=== PATIENT | male | born 1960 | race Caucasian/White ===

== ENCOUNTER 2022-02-05 08:22 | Outpatient (CLI) | payer BC, SELFPAY ==
--- NOTE | 2022-02-05 08:30 | ECG_ITS ---
Measurements Intervals [place] Rate: 76 P: 51 IN: 140 QRS: 53 QRSD: 122 T: 37 QT: 383 QTc: 433 Interpretive Statements SINUS RHYTHM NONSPECIFIC ST ABNORMALITY ABNORMAL ECG NO PREVIOUS ECG AVAILABLE FOR COMPARISON Electronically Signed On 02-05-2022 9:32:07 CDT by Joseph Bello M.D.
== END 2022-02-05 08:23 | disposition home or self-care (01) ==
LOC: ANHSURGERY 08:26
PROVIDERS: PCP Nurse Practitioner Adult Health; Visit Provider Otolaryngology
DX: I10 Essential (primary) hypertension (principal); Z01.818 Encounter for other preprocedural examination; R94.31 Abnormal electrocardiogram [ECG] [EKG]
CPT/HCPCS: 93005

== ENCOUNTER 2022-02-09 00:43 | Day surgery (SDC) | payer BC, SELFPAY ==
[2022-02-01 14:13] VITALS: BMI 33.5
--- NOTE | 2022-02-01 14:21 | PC.NURSE ---
Report to the Outpatient Waiting Room, entrance under the green pavilion located off [facility], at time _0715_ on date _[id number]_. OR Time: _0915_. Time changes happen often and if your time is changed the preop area will call you the afternoon before. - You and your visitor will be asked to self-screen and do not enter if you have any COVID symptoms. - We encourage only one visitor and NO visitors under age 16 are allowed at this time. Your visitor will receive communication by the phone number that is given day of service. - The patient visitor is requested to social distance or may leave the building when not with patient due to restrictions. - A mask is required within the hospital. Patients may have clear liquids (water, carbonated beverages, clear teas, apple juice) until 3 hours prior to surgery with a maximum of 20 ounces. - No food from midnight until time of surgery Take the following medications with a SIP of water the morning of surgery: ____Welbutrin Medications to discontinue per physician None Date to take last dose Please no make-up, nail nepalese, hairspray, perfume, deodorant, or body powder the day of surgery. No jewelry (including any body piercings) or valuables the day of surgery, leave them at home. Please take a shower or bath the night before, or the morning of, surgery with an antibacterial soap. Wear comfortable, loose fitting clothing. - Jewelry must be removed prior to entering the operating room. Rings and piercings that are not removed may be cut off. - The hospital will not accept responsibility for valuables. - Please leave all valuables, including medications, at home the day of surgery. If you are going home after surgery, a licensed helper/driver must drive you home. - NO public transportation without another adult. - We recommend that an adult stay with you for 24 hours following discharge. - We also recommend that you do not drive, make important decision, drink alcoholic beverages, or take any drugs that were not prescribed by your health care provider for at least 24 hours after your discharge time. Follow any additional instructions given to you from your surgeon. If you or anyone in your household have experienced Covid symptoms in the past week, please notify your surgeon or the nurse liaison at the phone number below for possible testing. Telephone instructions given to _Patient__and asked if any additional questions and then verbalized understanding. Patient advised to call surgeon office or pre surgery nurse liaison [phone] if any additional questions.
--- NOTE | 2022-02-08 17:10 | PM.IMHP ---
H&P: HPI History of Present Illness Date/Time: 02/08/22 17:10 Chief Complaint: nasal obstruction nasal congestion septal deviation turbinate hypertrophy scalp cyst Narrative: planned surgical procedure Review of Systems Review of Systems: All systems reviewed & are unremarkable except as noted in HPI and below PMFSH Past Medical History Medical History (Updated 12/18/21 @ 08:36 by Onesimo Pruett MD) Anxiety Blood clotting disorder Cancer Hypertension Kidney disease Kidney stone Surgical History Surgical History (Updated 12/18/21 @ 08:08 by Mami Su [facility]) H/O hernia repair 2007 H/O kidney removal Right 2004 History of partial knee replacement Left 2019 Right 2016 Family History Family History (Updated 12/18/21 @ 08:08 by Mami Su CMA) Sibling Diabetes mellitus Leukemia Father Diabetes mellitus Hypertension Heart disease Cerebrovascular accident Mother Hypertension Heart disease Cerebrovascular accident Social History Social History (Updated 12/18/21 @ 08:08 by Mami Su CMA) Smoking status: Never smoker Alcohol intake: never Substance use: current Substance use type: marijuana Other substance usage details: 3 or 4 times a week Spiritual care concerns: No Meds Home Medications and Allergies Home Medications Medication Instructions Recorded Confirmed Type alprazolam 0.25 mg tablet (Xanax) 0.25 mg PO QHS PRN Anxiety 12/18/21 02/01/22 History bupropion HCl 150 mg tablet,12 hr 150 mg PO DAILY 12/18/21 02/01/22 History sustained-release (Wellbutrin SR) lactobacillus combination no.9 4 4,000 mmu cells PO DAILY 12/18/21 02/01/22 History billion cell capsule (Adult 50 Plus Probiotic) lisinopril 10 mg tablet 10 mg PO DAILY 12/18/21 02/01/22 History omeprazole 20 mg capsule,delayed 20 mg PO DAILY 12/18/21 02/01/22 History release psyllium husk 0.4 gram capsule 0.4 g PO DAILY 12/18/21 02/01/22 History (Daily Fiber) tramadol 50 mg tablet 50 mg PO Q6H PRN Pain 12/18/21 02/01/22 History Allergies Allergy/AdvReac Type Severity Reaction Status Date / Time No Known Allergies Allergy Mild Unverified 02/01/22 14:11 Exam Narrative: scalp cyst septal deviation turbinate hypertrophy Assessment and Plan Assessment and plan (1) Scalp cyst: Code(s): L72.9 - Follicular cyst of the skin and subcutaneous tissue, unspecified Status: Acute Assessment and Plan: plan operating room excision of scalp cyst, we will do this 1st, endoscopic assisted septoplasty inferior turbinate submucosal reduction with outfracture. Risks were discussed including bleeding infection postoperative infection failure also resolve symptoms CSF leak brain damage brain change in vision blindness septal perforation failure to resolve symptoms need for time off work postoperative bleeding patient voiced understanding and agreed. (2) Hypertrophy of both inferior nasal turbinates: Code(s): J34.3 - Hypertrophy of nasal turbinates Status: Acute (3) Nasal septal deviation: Code(s): J34.2 - Deviated nasal septum Status: Acute (4) Nasal congestion: Code(s): R09.81 - Nasal congestion Status: Acute (5) Nasal obstruction: Code(s): J34.89 - Other specified disorders of nose and nasal sinuses Status: Acute
[2022-02-09] VITALS (8 sets, daily range): BP systolic 102–190; BP diastolic 67–112; PULSE 68–88; RESP 12–20; TEMP 36.3–36.6; O2SAT 98–100; BMI 33.7
--- NOTE | 2022-02-09 07:12 | WPDHPUPDATE1 ---
History and Physical Update Update Date/Time: 02/09/22 07:12 History and Physical has been reviewed, including an updated exam of the patient. There are NO changes in the patient's condition. Risks, benefits, and alternatives have been discussed and questions answered. Patient agrees to proceed with procedure.
[2022-02-09] MEDS: ACETAMINOPHEN 500 MG TABLET 1000 MG PO (07:34)
[2022-02-09] MEDS: LACTATED RINGERS 1,000 ML 30 ML IV CONT (07:50)
--- NOTE | 2022-02-09 07:59 | WPDANESEPPF ---
Anes - Initial Pre Proc Eval Procedure: Operation Date: 02/09/22 08:45 Proposed Procedures p Bilateral Inferior Turbinectomy with Outfracture, - Onesimo Pruett MD s Endoscopic Septoplasty, - Onesimo Pruett MD s Excision of Scalp Cyst - Onesimo Pruett MD Date/Time: 02/09/22 07:59 Surgeon: Onesimo Pruett MD Pre Op Diagnosis: septal deviation, scalp cyst Patient Data Age: 61 Gender: M Height: 1.83 m Weight: 112.95 kg Last Vital Signs Temp 36.3 C L 02/09/22 07:10 Pulse 78 02/09/22 07:10 Resp 16 02/09/22 07:10 BP 102/67 02/09/22 07:10 Pulse Ox 98 02/09/22 07:10 O2 Del Method Room Air 02/09/22 07:10 Allergies Allergy/AdvReac Type Severity Reaction Status Date / Time No Known Allergies Allergy Mild Verified 02/09/22 07:14 Home Medications Medication Instructions Recorded Confirmed Type alprazolam 0.25 mg tablet (Xanax) 0.25 mg PO QHS PRN Anxiety 12/18/21 02/01/22 History bupropion HCl 150 mg tablet,12 hr 150 mg PO DAILY 12/18/21 02/09/22 History sustained-release (Wellbutrin SR) lactobacillus combination no.9 4 4,000 mmu cells PO DAILY 12/18/21 02/01/22 History billion cell capsule (Adult 50 Plus Probiotic) lisinopril 10 mg tablet 10 mg PO DAILY 12/18/21 02/01/22 History omeprazole 20 mg capsule,delayed 20 mg PO DAILY 12/18/21 02/01/22 History release psyllium husk 0.4 gram capsule 0.4 g PO DAILY 12/18/21 02/01/22 History (Daily Fiber) tramadol 50 mg tablet 50 mg PO Q6H PRN Pain 12/18/21 02/01/22 History Patient hx anesthesia problems: none Family hx anesthesia problems: none Results Review: All pre-operative results and documents have been reviewed as part of the pre-operative evaluation. [facility] Past Medical History Medical History (Updated 02/09/22 @ 08:00 by Delmer Brenner MD) Anxiety Blood clotting disorder Cancer Hypertension Kidney disease Kidney stone Obesity LIZ (obstructive sleep apnea) Surgical History Surgical History H/O hernia repair 2007 H/O kidney removal Right 2004 History of partial knee replacement Left 2019 Right 2016 Family History Family History Sibling Diabetes mellitus Leukemia Father Diabetes mellitus Hypertension Heart disease Cerebrovascular accident Mother Hypertension Heart disease Cerebrovascular accident Social History Social History Smoking status: Never smoker Alcohol intake: never Substance use: current Substance use type: marijuana Other substance usage details: 3 or 4 times a week Living arrangements: with family Spiritual care concerns: No Anes - Eval Final PreProcedure Day of Procedure 02/09/22 07:59 Patient weight: obese Heart: regular rate and rhythm Lungs: clear to auscultation Airway: Mallampati scale class II Last oral intake: >/= 8 hours ASA classification: III Emergent: no Anesthetic plan: proceed Anesthesia type and monitoring: general ETT and standard monitoring Results Review: All pre-operative results and documents have been reviewed as part of the pre-operative evaluation. Informed Consent: The patient's anesthetic plan and its attendant risks and benefits were discussed with the patient/family/POA. Questions were solicited and answers provided to the satisfaction of the patient/family/POA.
[2022-02-09] MEDS: ceFAZolin 2 GM/D5W 50 ML 2 GM/50 ML BAG IVPB (08:28)
[2022-02-09] MEDS: OXYMETAZOLINE HCL 0.05% NAS 15 ML BTL (*BKC) 1 SPRAY NASAL (08:50)
--- NOTE | 2022-02-09 10:24 | W.PM.PROC2 ---
Procedure Note - Detailed Date of Procedure 02/09/22 Pre-op Diagnosis septal deviation, scalp cyst, turbinate hypertrophy, nasal obstruction, nasal congestion Post-op Diagnosis Same Procedure Performed excision of 5 cm scalp cyst as well as septoplasty endoscopic assisted turbinate reduction with outfracture Surgeon Onesimo Pruett MD Anesthesia General Indications see above Findings septum deviated to the left turbinates hypertrophied well reduced no concomitant perforations opposing each other scalp cyst about 5 cm dermoid appearing closed lysed nicely no drain minimal blood loss about 15 cc Description of Procedure patient identified consent verified. Patient brought operating room. Time-out performed. General anesthesia induced endotracheal tube secured airway. Patient prepped and draped for for mentioned procedure 2nd time-out performed. Ellipse drawn over the about 5 cm cyst on the scalp lips in size cyst dissected out using blunt dissection bipolar electrocautery at a setting 5 UTI utilized to cauterize any small bleeding vessels. Wound copiously irrigated with sterile normal saline. Deep layer closed with 3 interrupted 300 interrupted Vicryl sutures about 5, the skin was then glued. A pressure dressing was placed on this. Patient is then prepped and draped for the nasal portion of procedure. 0 degree endoscope utilized 6 Afrin-soaked pledgets placed allowed to sit for 5 minutes then removed. Total 15 cc 1% lidocaine 1 100,000 parts epinephrine injected in the nasal septum turbinates [place] incision made with 15 blade 7 Turkish suction utilized to dissect left nasal septal flap osteotome utilized to cross over septum right nasal septal flap elevated with 7 Turkish suction deviated septum removed with osteotome [place] forceps and Matthew forceps [place] incision closed with 4 interrupted 5 0 fast gut sutures. Turbinates reduced in the submucosal plane using the microdebrider with inferior turbinate blade. There then outfractured with a Bearden elevator. Darnell splints were then placed and sutured anteriorly using a mattress 3 0 nylon suture. Total blood loss 15 cc. I performed all dictated portions care the patient given Anesthesiology there no complications patient taken to PACU. Estimated Blood Loss -15.0 Drains No Packing No Pathology Yes Complications No immediate complications Condition Stable Disposition PACU
== END 2022-02-09 12:15 | disposition home or self-care (01) ==
PROVIDERS: PCP Nurse Practitioner Adult Health; Visit Provider Otolaryngology
PROC: (CPT 11426; principal; 2022-02-09 08:45)
PROC: (CPT 30520; 2022-02-09 08:45)
PROC: (CPT 11426; 2022-02-09 08:45)
DX: J34.2 Deviated nasal septum (principal); J34.3 Hypertrophy of nasal turbinates; J34.89 Other specified disorders of nose and nasal sinuses; R09.81 Nasal congestion; L72.11 Pilar cyst; I10 Essential (primary) hypertension; G47.33 Obstructive sleep apnea (adult) (pediatric); F41.9 Anxiety disorder, unspecified; E66.9 Obesity, unspecified; Z68.33 Body mass index [BMI] 33.0-33.9, adult; F12.90 Cannabis use, unspecified, uncomplicated
CPT/HCPCS: 11426; 12032; 30140; 30520; 88305; A9270; J0330; J0690; J1100; J1170; J2250; J2405; J2704; J3010; J7120

== ENCOUNTER 2022-08-10 16:38 | Outpatient (CLI) | payer BC, SELFPAY ==
--- NOTE | ~2022-08-10 | XR_ITS ---
Supine and upright views of the abdomen Clinical history: Flank pain Findings: Bowel gas pattern is nonspecific. No evidence for obstruction or free air. Evidence of prob able prior herniorrhaphy. No abnormal mass lesion or calcification is seen. Osseous structures are in tact. Impression: No acute abnormality is seen. Probable prior herniorrhaphy. Reviewed, dictated and finalized at location . Impression: No acute abnormality is seen. Probable prior herniorrhaphy.
--- NOTE | ~2022-08-10 | CT_ITS ---
Non-contrast CT scan of the Abdomen and Pelvis Clinical indication: Flank pain Technique: 2.5 mm axial scans were obtained through the abdomen and pelvis without intravenous or or al contrast. Dose reduction technique was used on this scan by utilizing automated exposure control a nd iterative reconstruction technique. The dose-length product (DLP) was 1459.53 mGy-cm. Findings: Images through the lung bases reveal no abnormalities. Left kidney is unremarkable. Patient is status post right nephrectomy. The liver, spleen, pancreas, gallbladder, and adrenals appear normal. Mild atherosclerotic calcificat ions of the aorta are noted. There is no evidence of bowel obstruction. 6 cm duodenal diverticulum noted. Sigmoid diverticulosis n oted. Images through the pelvis were performed. There is no evidence of ascites or lymphadenopathy. Urinary bladder unremarkable. Prostate gland is mildly enlarged. Left piriformis muscle is asymmetrically en larged and mildly hyperdense, with infiltration of adjacent fat planes. There is mild infiltration of presacral fat. Impression: Asymmetric enlargement and mild hyperdensity of the left piriformis muscle with infiltration of adjac ent fat planes. Appearance is most consistent with intramuscular hematoma. 6 cm duodenal diverticulum. Status post right nephrectomy. Reviewed, dictated and finalized at [facility]. Impression: Asymmetric enlargement and mild hyperdensity of the left piriformis muscle with infiltration of adjacent fat planes. Appearance is most consistent with intram uscular hematoma. 6 cm duodenal diverticulum. Status post right nephrectomy.
== END 2022-08-10 16:39 | disposition home or self-care (01) ==
DX: R10.9 Unspecified abdominal pain (principal); K57.10 Diverticulosis of small intestine without perforation or abscess without bleeding
CPT/HCPCS: 74018; 74176

== ENCOUNTER 2023-04-19 11:39 | Outpatient (CLI) | payer BC, SELFPAY ==
[2023-04-19 18:47] LABS: Hematocrit 46.5 % (42.0-52.0); Hemoglobin 14.8 g/dL (14.0-18.0); Mean Corpuscular HGB Conc 31.8 g/dl (32-36); Mean Corpuscular Hemoglobin 28.2 pg (26-34); Mean Corpuscular Volume 88.7 fl (80-100); Mean Platelet Volume 9.8 fl (7.4-10.4); Platelet Count Result 261 k/mm3 (150-375); Red Blood Count 5.24 M/mm3 (4.6-6.20); Red Cell Distribution Width 13.1 % (11.5-14.5); White Blood Count 7.1 K/mm3 (4.5-10.0)
[2023-04-19 18:50] LABS: Alanine Aminotransferase 31 U/L (6-50); Alkaline Phosphatase 61 U/L (38-126); Anion Gap 7 mmol/L (8-16); Aspartate Amino Transferase 40 U/L (17-59); Bilirubin,Total 0.5 mg/dL (0.2-1.3); Blood Urea Nitrogen 19 mg/dL (9-20); Calcium 8.8 mg/dL (8.4-10.2); Carbon Dioxide 27 mmol/L (22-30); Chloride 104 mmol/L (98-107); Cholesterol 159 mg/dL (0-200); Estimated Glomerular Filt Rate > 60; Glucose 100 mg/dL (65-110); HDL Direct 36 mg/dL; Potassium 4.2 mmol/L (3.4-5.0); Sodium 138 mmol/L (137-145); Triglycerides 85 mg/dL (<150)
[2023-04-19 19:01] LABS: LDL Cholesterol Direct 95 mg/dL
[2023-04-19 19:59] LABS: Folic Acid 7.2 ng/mL (2.76->20)
== END 2023-04-19 11:40 | disposition home or self-care (01) ==
LOC: ANHBWCLAB 11:41
PROVIDERS: PCP Nurse Practitioner Adult Health; Visit Provider Nurse Practitioner Adult Health
DX: Z13.9 Encounter for screening, unspecified (principal); Z51.81 Encounter for therapeutic drug level monitoring; Z79.899 Other long term (current) drug therapy
CPT/HCPCS: 36415; 80053; 80061; 82607; 82746; 85027

== ENCOUNTER 2023-10-21 09:16 | Outpatient (CLI) | payer BC, SELFPAY ==
[2023-10-21 19:43] LABS: Basophils Percent Auto 0.6 % (0.2-1.2); Eosinophils Absolute Auto 0.2 K/mm3 (0-0.3); Eosinophils Percent Auto 2.5 % (0-4.4); Hematocrit 47.1 % (42.0-52.0); Hemoglobin 14.8 g/dL (14.0-18.0); Immature Granulocyte Absolute 0.02 K/mm3 (0.00-0.031); Immature Granulocyte Percent A 0.3 % (0-0.5); Lymphocytes Absolute Auto 1.68 K/mm3 (0.9-3.2); Lymphocytes Percent Auto 23.2 % (18.3-44.2); Mean Corpuscular HGB Conc 31.4 g/dl (32-36); Mean Corpuscular Hemoglobin 28.5 pg (26-34); Mean Corpuscular Volume 90.6 fl (80-100); Monocytes Absolute Auto 0.7 K/mm3 (0.1-0.6); Monocytes Percent Auto 9.5 % (2.6-8.5); Neutrophils Absolute Auto 4.6 K/mm3 (1.3-6.7); Neutrophils Percent Auto 63.9 % (45.5-73.1); Platelet Count Result 249 k/mm3 (150-375); Red Cell Distribution Width 13.2 % (11.5-14.5); White Blood Count 7.2 K/mm3 (4.5-10.0)
[2023-10-21 19:48] LABS: Alanine Aminotransferase 29 U/L (6-50); Albumin Level 4.3 g/dL (3.5-5.1); Alkaline Phosphatase 58 U/L (38-126); Anion Gap 5 mmol/L (4-12); Aspartate Amino Transferase 67 U/L (17-59); Bilirubin,Total 0.5 mg/dL (0.2-1.3); Blood Urea Nitrogen 23 mg/dL (9-20); Calcium 8.8 mg/dL (8.4-10.2); Carbon Dioxide 29 mmol/L (22-30); Chloride 105 mmol/L (98-107); Cholesterol 165 mg/dL (0-200); Estimated Glomerular Filt Rate > 60; Glucose 106 mg/dL (65-110); HDL Direct 35 mg/dL; Magnesium 2.4 mg/dL (1.6-2.3); Potassium 4.5 mmol/L (3.4-5.0); Sodium 139 mmol/L (137-145); Triglycerides 143 mg/dL (<150)
[2023-10-21 19:59] LABS: LDL Cholesterol Direct 97 mg/dL
== END 2023-10-21 09:17 | disposition home or self-care (01) ==
LOC: ANHBWCLAB 09:17
PROVIDERS: PCP Nurse Practitioner Adult Health; Visit Provider Nurse Practitioner Adult Health
DX: E53.8 Deficiency of other specified B group vitamins (principal); I10 Essential (primary) hypertension
CPT/HCPCS: 36415; 80053; 80061; 82607; 83735; 84443; 85025

== ENCOUNTER 2024-05-06 08:17 | Outpatient (CLI) | payer BC, SELFPAY ==
[2024-05-06 18:58] LABS: Basophils Absolute Auto 0.1 K/mm3 (0.0-0.1); Basophils Percent Auto 0.6 % (0.2-1.2); Eosinophils Absolute Auto 0.1 K/mm3 (0-0.3); Eosinophils Percent Auto 1.5 % (0-4.4); Hematocrit 51.2 % (42.0-52.0); Hemoglobin 16.4 g/dL (14.0-18.0); Immature Granulocyte Absolute 0.03 K/mm3 (0.00-0.031); Immature Granulocyte Percent A 0.4 % (0-0.5); Lymphocytes Absolute Auto 1.93 K/mm3 (0.9-3.2); Lymphocytes Percent Auto 24.1 % (18.3-44.2); Mean Corpuscular Hemoglobin 28.6 pg (26-34); Mean Corpuscular Volume 89.4 fl (80-100); Mean Platelet Volume 9.4 fl (7.4-10.4); Monocytes Absolute Auto 0.7 K/mm3 (0.1-0.6); Monocytes Percent Auto 9.2 % (2.6-8.5); Neutrophils Absolute Auto 5.2 K/mm3 (1.3-6.7); Neutrophils Percent Auto 64.2 % (45.5-73.1); Platelet Count Result 299 k/mm3 (150-375); Red Blood Count 5.73 M/mm3 (4.6-6.20); Red Cell Distribution Width 13.2 % (11.5-14.5)
[2024-05-06 19:03] LABS: Alanine Aminotransferase 28 U/L (6-50); Albumin Level 4.5 g/dL (3.5-5.1); Alkaline Phosphatase 57 U/L (38-126); Anion Gap 4 mmol/L (4-12); Aspartate Amino Transferase 46 U/L (17-59); Bilirubin,Total 0.7 mg/dL (0.2-1.3); Blood Urea Nitrogen 20 mg/dL (9-20); Calcium 9.4 mg/dL (8.4-10.2); Carbon Dioxide 30 mmol/L (22-30); Chloride 103 mmol/L (98-107); Cholesterol 167 mg/dL (0-200); Estimated Glomerular Filt Rate 57; Glucose 101 mg/dL (65-110); HDL Direct 37 mg/dL; Potassium 5.3 mmol/L (3.4-5.0); Sodium 137 mmol/L (137-145); Triglycerides 58 mg/dL (<150)
[2024-05-06 19:15] LABS: LDL Cholesterol Direct 109 mg/dL
== END 2024-05-06 08:18 | disposition home or self-care (01) ==
LOC: ANHBWCLAB 08:18
PROVIDERS: PCP Nurse Practitioner Adult Health; Visit Provider Nurse Practitioner Adult Health
DX: I10 Essential (primary) hypertension (principal); E53.8 Deficiency of other specified B group vitamins
CPT/HCPCS: 36415; 80053; 80061; 82607; 85025

== ENCOUNTER 2024-05-18 07:25 | Outpatient (CLI) | payer BC, SELFPAY ==
--- OUTSIDE RECORDS SUMMARY | 2024-05-18 07:29 | XMS_ITS | Clinical Summary ---
Author Organization [facility] Address [address] [place] [address] Phone Care Team Providers Care Belt Lacer Name Role Phone Carlos Julieta David MORENO Primary Care Provider [phone] Allergies No known active allergies Medications Cholecalciferol (VITAMIN D PO) Take 50,000 Tabs by mouth once a week. Active lisinopril (PRINIVIL, ZESTRIL) 10 MG Tablet Take 10 mg by mouth daily. Active Omeprazole Magnesium 20 MG Tablet Delayed Response Take 20 mg by mouth daily. Active FIBER, CORN DEXTRIN, PO Take 2,600 mg by mouth daily. Active Probiotic Product (PROBIOTIC ADVANCED PO) Take 1 Tab by mouth daily. Active Xarelto 15 MG Tablet TAKE 1 TABLET BY MOUTH TWICE DAILY FOR 21 DAYS. THEN START 20MG TABS 12/24/2019 Active Active Problems No known active problems Family History Medical History Relation Name Comments Diabetes Father Heart Attack Father Hypertension Father Heart Attack Mother Hypertension Mother Leukemia/Lymphoma Sister 1 leukemia Diabetes Sister 2 Relation Name Status Comments Father Mother Sister 1 Sister 2 Social History Tobacco Use Types Packs/Day Years Used Date Smoking Tobacco: Never Smokeless Tobacco: Never Tobacco Cessation:Counseling Given: Yes Alcohol Use Standard Drinks/Week Comments No 0 (1 standard drink = 0.6 oz pur e alcohol) Sex and Gender Information Value Date Recorded Sex Assigned at Not on file Legal Sex Male 11:21 PM CDT Gender Identity Not on file Sexual Orientation Not on file Last Filed Vital Signs Vital Sign Reading Time Taken Comments Blood Pressure 98/68 09/12/2021 2:36 PM CDT Pulse 77 09/12/2021 2:36 PM CDT Temperature 36.6 ??C (97.9 ??F) 09/12/2021 2:36 PM CD T Respiratory Rate 18 09/12/2021 2:36 PM CDT Oxygen Saturation 97% 09/12/2021 2:36 PM CDT Inhaled Oxygen Concentration - - Weight 120.2 kg (265 lb) 09/12/2021 2:36 PM CDT Height 182.9 cm (6') 05/09/2018 5:50 AM [employer] Body Mass Index 35.94 05/09/2018 5:50 AM [employer] Plan of Treatment Health Maintenance Due Date Last Done Comments Hepatitis C Virus (HCV) Screening 1962 Cologuard 2012 Immunochemical Fecal Occult Blood 2012 Pneumococcal Immunization (5 0+ years) (1 of 1 - PCV) 2012 Zoster Immunization (1 of 2) 2012 PSA Discussion 2017 Colonoscopy 03/24/2023 03/24/2018, 09/28/2016 Colorectal Cancer Screening 03/24/2023 Influenza Immunization (#1) 12/22/202301/20, 01/29/2018 SARS-COV-2 Immunization ( season) 2023 04/10/2021, 06/25/2020, 06/20/2020 Respiratory Syncytial Virus (RSV) Immunization (Adult) (1 - 1-dose 75+ series) 2037 03/24/2018, 09/28/2016 DTaP/Tdap/Td Immunization Discontinued 11/12/2013 TdaP Immunization Completed 11/12/2013 Hepatitis B Immunization Aged Out No longer eligible based on patient's age to complete this topic Meningococcal Immunization (ACWY) Aged Out No longer eligible based on patient's age to complete this topic Pneumococcal Immunization Combined Aged Out No longer eligible based on patient's age to complete this topic Rotavirus Immunization Aged Out No lo nger eligible based on patient's age to complete this topic Insurance [facility] Care Teams Belt Lacer Relationship Specialty Start Date End Date Julieta Gonzalez APRN PCP - General Advanced Practice Nurse 05/15/16
--- OUTSIDE RECORDS SUMMARY | 2024-05-18 07:29 | XMS_ITS | Continuity of Care Document ---
Author Organization [facility] Address [address] [facility] [address] [place] [address] Phone Care Team Providers Care Processing Analyst Name Role Phone Rupesh Valente MD Unavailable Unavailable Allergies, Adverse Reactions, Alerts Substance Reaction Status Criticality No Known Allergies Active No Inform ation Medications Medication Instructions Dosage Effective Dates (start - stop) Status Comments MELOXICAM 15MG TABLETS TAKE 1 TABLET BY MOUTH EVERY DAY - Active Voltaren 1 % topical gel apply (2G) by topical route 4 times every day to the affected area(s) - Active Probiotic 10 billion cell capsule - Active PRILOSEC (unknown strength) Not Available - Active FIBERCON (unknown strength) Not Available - Active LISINOPRIL (unknown strength) Not Available - Active Mobic 15 mg tablet take 1 tablet by oral route every day - No Longer Active Procedures Procedure Date RADEX KNE COMPL 4/MORE VIEWS OFFICE/OUTPATIENT VISIT EST OFFICE/OUTPATIENT VISIT NEW REVISION OF KNEE JOINT OFFICE/OUTPATIENT VISIT NEW OFFICE/OUTPATIENT VISIT EST OFFICE/OUTPATIENT VISIT EST POSTOP FOLLOW-UP VISIT POSTOP FOLLOW-UP VISIT OFFICE/OUTPATIENT VISIT EST POSTOP FOLLOW-UP VISIT OFFICE/OUTPATIENT VISIT EST OFFICE/OUTPATIENT VISIT EST Advance Directives Directive Yes / No Effective Date File Name No Information Encounters Encounter Description Practice Location Reason(s) For Visit Diagnoses Date Provider Providers Copied on Encounter [facility], [address] [address] [address], [place], [address], [place] [phone] [facility] No Information 0 Ambrosio Rupesh. [address], [place], [place], [id number] , [place]. tel: [phone] OFFICE/OUTPA TIENT VISIT EST [facility], [address] [address] [facility] [address], [place], [address], [place] [phone] [facility] Pain in right kneePresence of left artificial knee jointStatus post right partial knee replacementAcut e pain of left kneeBody mass index (BMI) 35.0-35.9, adult 0 Ambrosio Reynae. [address], [place], [place], [id number] , [place]. tel: [phone] Referring Provider: Julieta Gonzalez [address] [place], [place] [address]y [address], [place], [address]. tel:[phone] OFFICE/OUTPA TIENT VISIT [facility], [address] [place] [address], [address], [place] tel:[phone] [facility] Primary osteoarthritis of left kneePresence of left artificial knee joint 8 9 Aubuchon Sanjay. [address], [place], [place], [id number] . tel: [phone] [facility], [address] [place] [address], [address], [place] tel:[phone] [facility] Primary osteoarthritis of left knee 0-201 9 Aubuchon Sanjay. [address], [place], [place], [id number] . tel: [phone] OFFICE/OUTPA TIENT VISIT [facility], [address] [place] [address], [address], [place] tel:[phone] [facility] Body mass index (BMI) 35.0-35.9, adultPrimary osteoarthritis of left knee 0-201 9 Aubuchon Sanjay. [address], [place], [place], [address] . tel: [phone] OFFICE/OUTPA TIENT VISIT EST [facility], [address], [address], [place] tel:[phone] [facility] Primary osteoarthritis of right knee Jan-2 0-201 6 Aubuchon Sanjay. [address], [place], [place], [id number] . tel: [phone] OFFICE/OUTPA TIENT VISIT [facility], [address] [place] [address], [address], [place] tel:[phone] [facility] Primary osteoarthritis of right knee 1- 6 Aubuchon Sanjay. [address], [place], [place], [address] . tel: [phone] [facility], [address] [place] [address], [address], [place] tel:[phone] [facility] Status post right partial knee replacement 8- 6 Aubuchon Sanjay. [address], [place], [place], [id number] . tel: [phone] [facility], [address] [place] [address], [address], [place] tel:[phone] [facility] Status post right partial knee replacement Jun-2 1-201 6 Aubuchon Sanjay. [address], [place], [place], [address] . tel: [phone] [facility], [address] [place] [address], [address], [place] tel:[phone] [facility] Primary osteoarthritis of right knee Jun-0 3-201 6 Aubuchon Sanjay. [address], [place], [place], [address] . tel: [phone] [facility], [address] [place] [address], [address], [place] tel:[phone] [facility] Primary osteoarthritis of right knee 6 Aubuchon Sanjay. [address], [place], [place], [id number] . tel: [phone] OFFICE/OUTPA TIENT VISIT EST [facility], [address] [place] [address], [address], [place] tel:[phone] [facility] R KNEE PAIN (chief complaint) Primary osteoarthritis of right knee 6 Aubuchon Sanjay. [address], [place], [place], [address] . tel: [phone] [facility], [address] [place] [address], [address], [place] tel:[phone] [facility] po rt knee (chief complaint) MMT (medial meniscus tear) Oct-2 0-201 4 Aubuchon Sanjay. [address], [place], [place], [address] . tel: [phone] [facility], [address] [place] [address], [address], [place] tel:[phone] [facility] MMT (medial meniscus tear) Sep-3 0-201 4 Aubuchon Sanjay. [address], [place], [place], [address] . tel: [phone] OFFICE/OUTPA TIENT VISIT EST [facility], [address] [place] [address], [address], [place] tel:[phone] [facility] Follow Up of rt knee discuss mri (chief complaint) MMT (medial meniscus tear) Sep-3 0-201 4 Aubuchon Sanjay. [address], [place], [place], [address] . tel: [phone] Referring Provider: Sanjay Mendiola, [address], [place], [address] . tel:[phone] OFFICE/OUTPA TIENT VISIT EST [facility], [address], [place], [address], tel:[phone] [facility] eval R knee (chief complaint) Knee pain 4 Maury Grace. [address], [place], [place], [address] . tel: [phone] Family History Family Member Type Diagnosis Age At Onset Father, Mother Problem Heart disease Father, Sister Problem Diabetes mellitus Father, Mother Problem hypertension Sister Problem Cancer, Leukemia Father, Mother Problem stroke Brother Problem (finding) Alive and well Son Problem (finding) Alive and well Payers Payer name Insurance type Covered green party ID Authoriza tion(s) [employer] [facility] E2 OT [id number] Social History Type Description Quantity Date Captured Comments Sex Male Smoking Status No Information Chief Complaint And Reason For Visit No Information Reason For Referral Reason For Referral No Information Plan Of Treatment Date Type Action Status Referral Ordered: RADEX KNE COMPL 4/MORE VIEWS RT ordered Referral Ordered: RADEX KNE 3 VIEWS LT ordered Referral Ordered: RADEX KNE 1/2 VIEWS RT ordered Referral Ordered: MRI ANY JT LXTR C-MATRL RT knee Appointment date/timeframe: 01/08/2014 ordered Referral Ordered: RADEX KNE 3 VIEWS RT ordered History Of Present Illness Encounter Date Complaint History Of Prese nt Illness R KNEE PAIN po rt knee Follow Up of rt knee discuss mri eval R knee Functional Status Date Functional Assessmen t No Information Instructions Date Instruction Additional Infor mation Giving encouragement to exercise Related to Body mass index (BMI) 35.0-35.9, adult Activity as tolerated. Related t o Primary osteoarthritis of left knee Apply ice as instructed. Related to Primary osteoarthritis of left knee Activity as tolerated. Related t o Primary osteoarthritis of left knee Giving encouragement to exercise Related to Body mass index (BMI) 35.0-35.9, adult Activity as tolerated. Related t o Primary osteoarthritis of right knee Apply ice as instructed. Related to Primary osteoarthritis of right knee Apply ice as tolerated. Related to MMT (medial meniscus tear) Elevate extremity above heart. R elated to MMT (medial meniscus tear) Assessments Type Assessment Date No Information Patient Care Teams Name Effective Dates (start - stop) Status Members No Information
--- OUTSIDE RECORDS SUMMARY | 2024-05-18 07:29 | XMS_ITS | Clinical Summary ---
Author Organization [facility] Address [address] [place] [address] Phone Care Team Providers Care Hand Silvering Supervisor Name Role Phone Julieta Gonzalez Primary Care Provider [phone] Allergies No known active allergies Medications cholecalciferol, vitamin D3, (VITAMIN D3) 5,000 unit Take 400 Units by mouth every 7 days. Active lisinopril (PRINIVIL) 10 mg tablet Take 10 mg by mouth daily. Active traMADol (ULTRAM) 50 mg tablet Take 100 mg by mouth every 6 hours as needed for Pain. Active calcium polycarbophil (FIBERCON ORAL) Take by mouth. Active oxyCODONE-acetamin ophen (PERCOCET) 5-325 mg tabletIndications: Arthritis of knee Take 2 Tablets by mouth every 4 hours as needed for Pain, Break-Throug h. Max Daily Amount: 12 Tablets 40 Tablet 9 Active omeprazole (PriLOSEC) 20 mg Capsule, Delayed Release(E.C.) Take 1 Capsule (20 mg) by mouth daily. 0 9 Active Social History Tobacco Use Types Packs/Day Years Used Date Smoking Tobacco: Never Smokeless Tobacco: Never Alcohol Use Standard Drinks/Week Comments Never 0 (1 standard drink = 0.6 oz pur e alcohol) Sex and Gender Information Value Date Recorded Sex Assigned at Not on file Legal Sex Male 1:36 PM CDT Gender Identity Not on file Sexual Orientation Not on file Last Filed Vital Signs Vital Sign Reading Time Taken Comments Blood Pressure 186/85 10/12/2018 8:49 AM CDT Pulse 76 10/12/2018 8:49 AM CDT Temperature 36.8 ??C (98.2 ??F) 10/12/2018 8:49 AM CD T Respiratory Rate 16 10/12/2018 8:49 AM CDT Oxygen Saturation 97% 10/12/2018 8:49 AM CDT Inhaled Oxygen Concentration - - Weight 118.4 kg (261 lb) 10/10/2018 8:02 AM CDT Height 182.9 cm (6') 10/10/2018 8:02 AM CDT Body Mass Index 35.4 10/10/2018 8:02 AM CDT Plan of Treatment Health Maintenance Due Date Last Done Comments COLORECTAL SCREENING 09/11/2007 Colorectal Cancer Screening 09/11/2007 FIT-DNA Q 3 years 09/11/2007 FIT/FOBT Q 1 year 09/11/2007 Flex Sig/CT Colonography Q 5 years 09/11/2007 ZOSTER VACCINE (1 of 2) 2012 DTAP/TDAP/TD VACCINES (2 - T d or Tdap) 11/13/2023 11/12/2013 INFLUENZA VACCINE (#1) 2023 01/21/2016 RSV VACCINE (60+ or ) (1 - 1-dose 75+ series) 2037 PNEUMOCOCCAL VACCINE 0-64 YEARS Aged Out No longer eligible based on patient's age to complete this topic Medical Devices Implanted Type Area Director Speech Device Identifier Shelf Expiration Date Model / Serial / Lot Cement [facility] 40 [id number] - [id number] Implanted:Qt y: 1 on 10/10/2018 by Sanjay Mendiola MD at [facility] Cement Left: Knee [employer] 09/19/2022 [id number] / / [id number] Comp Tib Uni Hi Flx Sz5 [id number] - [id number] Implanted:Qt y: 1 on 10/10/2018 by Sanjay Mendiola MD at [facility] Knee Left: Knee [employer] [id number] 05/22/2027 [id number] / / [id number] Comp Fem Uni Hf Pc Eliseo [id number] - [id number] Implanted:Qt y: 1 on 10/10/2018 by Sanjay Mendiola MD at [facility] Knee Left: Knee [employer] [id number] 03/21/2027 [id number] / [id number] Ins Tib Uni Hf Sz5 8mm [id number] 08 - [id number] Implanted:Qt y: 1 on 10/10/2018 by Sanjay Mendiola MD at [facility] Knee Left: Knee [employer] [id number] 06/19/2022 [id number] / / [id number] Description:ALL DELACRUZ & NEPH EW COMPONETS ON REQUISITION# [id number] Insurance [employer] Advance Directives For more information, please contact: [phone] * Full Code (Latest Code Status on File) Date Activated Date Inactivated Comments 10/10/2018 2:37 PM 10/12/2018 2:39 PM Care Teams Hand Silvering Supervisor Relationship Specialty Start Date End Date Julieta Gonzalez ANP [address] [address] PCP - General Nurse Practitioner Adult Health 09/26/18
[2024-05-18 20:46] LABS: Potassium 4.7 mmol/L (3.4-5.0)
== END 2024-05-18 07:26 | disposition home or self-care (01) ==
LOC: ANHBWCLAB 07:26
PROVIDERS: PCP Nurse Practitioner Adult Health; Visit Provider Nurse Practitioner Adult Health
DX: E87.5 Hyperkalemia (principal)
CPT/HCPCS: 36415; 84132

== ENCOUNTER 2024-11-04 08:02 | Outpatient (CLI) | payer BC, SELFPAY ==
--- OUTSIDE RECORDS SUMMARY | 2024-11-04 08:06 | XMS_ITS | Clinical Summary ---
Author Organization [facility] Address [address] [place] [address] Phone Care Team Providers Care Second Steward Name Role Phone Carlos Julieta David MORENO Primary Care Provider [phone] Allergies No known active allergies Medications Cholecalciferol [...] 77 09/12/2021 2:36 PM CDT Temperature 36.6 C (97.9 F) 09/12/2021 2:36 PM CDT Respiratory Rate 18 09/12/2021 2:36 PM CDT Oxygen Saturation 97% 09/12/2021 2:36 PM CDT Inhaled Oxygen Concentration - - Weight 120.2 kg (265 lb) 09/12/2021 2:36 PM CDT Height 182.9 cm (6') 05/09/2018 5:50 AM MANAGER CULINARY Body Mass Index 35.94 05/09/2018 5:50 AM MANAGER CULINARY Plan of Treatment Health Maintenance Due Date Last Done Comments Hepatitis C Virus (HCV) Screening 1962 Cologuard 09/11/2007 Immunochemical Fecal Occult Blood 09/11/2007 Pneumococcal Immunization (5 0+ years) (1 of 1 - PCV) 2012 Zoster Immunization (1 of 2) 2012 PSA Discussion 2017 Colonoscopy 03/24/2023 03/24/2018, 09/28/2016 Colorectal Cancer Screening 03/24/2023 SARS-COV-2 Immunization ( season) 2023 04/10/2021, 06/25/2020, 06/20/2020 Influenza Immunization (#1) 12/21/202401/20, 01/29/2018, 01/21/2016 Respiratory Syncytial Virus (RSV) Immunization (Adult) (1 - 1-dose 75+ series) 2037 DTaP/Tdap/Td Immunization Discontinued 11/12/2013 TdaP Immunization Completed 11/12/2013 Hepatitis B Immunization Aged Out No longer eligible based on patient's age to complete this topic Human Papillomavirus (HPV) Immunization Aged Out No longer eligible based on patient's age to complete this topic Meningococcal Immunization (ACWY) Aged Out No longer eligible based on patient's age to complete this topic Rotavirus Immunization Aged Out No lo nger eligible based on patient's age to complete this topic Insurance [facility] Care Teams Second Steward Relationship Specialty Start Date End Date Julieta Gonzalez APRN PCP - General Advanced Practice Nurse 05/15/16
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
[2024-11-04 18:31] LABS: Hematocrit 50.1 % (42.0-52.0); Hemoglobin 15.7 g/dL (14.0-18.0); Mean Corpuscular HGB Conc 31.3 g/dl (32-36); Mean Corpuscular Hemoglobin 28.0 pg (26-34); Mean Corpuscular Volume 89.3 fl (80-100); Platelet Count Result 282 k/mm3 (150-375); Red Blood Count 5.61 M/mm3 (4.6-6.20); White Blood Count 7.5 K/mm3 (4.5-10.0)
[2024-11-04 18:51] LABS: Alanine Aminotransferase 27 U/L (6-50); Albumin Level 4.5 g/dL (3.5-5.1); Alkaline Phosphatase 61 U/L (38-126); Anion Gap 8 mmol/L (4-12); Aspartate Amino Transferase 61 U/L (17-59); Bilirubin,Total 0.9 mg/dL (0.2-1.3); Blood Urea Nitrogen 18 mg/dL (9-20); Calcium 9.5 mg/dL (8.4-10.2); Carbon Dioxide 26 mmol/L (22-30); Chloride 103 mmol/L (98-107); Cholesterol 218 mg/dL (0-200); Estimated Glomerular Filt Rate 54; Glucose 105 mg/dL (65-110); HDL Direct 37 mg/dL; Potassium 4.7 mmol/L (3.4-5.0); Sodium 137 mmol/L (137-145); Total Protein 7.8 g/dL (6.3-8.2); Triglycerides 68 mg/dL (<150)
[2024-11-04 19:22] LABS: Prostate Specific Antigen 1.6 ng/mL (< OR = 4.0)
[2024-11-04 19:31] LABS: Vitamin B12 266.0 pg/mL (239-931)
== END 2024-11-04 08:03 | disposition home or self-care (01) ==
LOC: ANHBWCLAB 08:04
PROVIDERS: PCP Nurse Practitioner Adult Health; Visit Provider Nurse Practitioner Adult Health
DX: E53.8 Deficiency of other specified B group vitamins (principal); I10 Essential (primary) hypertension; Z12.5 Encounter for screening for malignant neoplasm of prostate
CPT/HCPCS: 36415; 80053; 80061; 82607; 84153; 85027; G0103